=== PATIENT | male | born 1975 | race Hispanic/Latino ===

== ENCOUNTER 2019-10-23 02:00 | Emergency (ER) | payer OTHER ==
[~2019-10-23] VITALS: Ht 170.2 cm; Wt 97.5 kg
[2019-10-23 02:03] VITALS: BP 156/62
[2019-10-23] MEDS ORDERED: WATER ONE ×2 (02:03→02:42)
[2019-10-23] MEDS ORDERED: ANCEF 1 GM in NS 100ML 100 ML IV STA (02:11)
[2019-10-23] MEDS ORDERED: MORPHINE SULFATE IV STA (02:11)
--- NOTE | 2019-10-23 02:11 | NUR ---
CALL FOR XRAY CALL MADE FOR XRAY NEEDED TO [facility]
[2019-10-23 02:14] VITALS: BP_SYST 156
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
[2019-10-23] MEDS ORDERED: ANCEF ONE (02:17)
[2019-10-23] MEDS ORDERED: MORPHINE SULFATE ONE (02:17)
[2019-10-23] MEDS ORDERED: ADACEL VIAL IM ONE ×2 (02:18→02:30)
[2019-10-23] MEDS ORDERED: NS 100ML 100 ML IV ONE (02:18)
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
[2019-10-23 02:36] VITALS: BP 146/88
--- NOTE | 2019-10-23 02:49 | NUR ---
TRANSFER PT ACCEPTED TO [facility] ER-ER BY DR. NUNO AT THIS TIME WITH TANESHA BONDS. PT TO GO POV TO [facility].
[2019-10-23 03:06] VITALS: BP 146/83
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
== END 2019-10-23 03:28 | disposition short-term general hospital (02) ==
LOC: ER 02:00
DX: S61.432A Puncture wound without foreign body of left hand, initial encounter (principal); E11.9 Type 2 diabetes mellitus without complications; W34.00XA Accidental discharge from unspecified firearms or gun, initial encounter; Y93.89 Activity, other specified; Y92.89 Other specified places as the place of occurrence of the external cause; Y99.8 Other external cause status
CPT/HCPCS: 73130; 90471; 90715; 96365; 96375; 99285; J0690 ×2; J2270; J7050 ×2; 99284

== ENCOUNTER 2020-03-11 02:21 | Emergency (ER) | payer OTHER ==
[~2020-03-11] VITALS: Ht 167.6 cm; Wt 95.3 kg
[2020-03-11 02:38] VITALS: BP 161/92
[2020-03-11 03:26] VITALS: BP 147/89
--- NOTE | 2020-03-11 03:28 | ER.PDOC ---
General Chief Complaint: Sore Throat Stated Complaint: COUGH,SORE THROAT,CONGESTION Time seen by MD: 03:25 Source: patient Exam Limitations: no limitations History of Present Illness Initial Comments Cough, congestion and sore throat for 2 days. No fever or chills. Timing/Duration: gradual Severity: mild Associated Symptoms: runny nose, sore throat, cough Allergies: Coded Allergies: No Known Allergies (Unverified , 06/09/18) Constitutional: no symptoms reported EENTM: see HPI Respiratory: see HPI Cardiovascular: no symptoms reported Gastrointestinal: no symptoms reported Genitourinary: no symptoms reported All Other Systems: Reviewed and Negative Past Medical History Medical History: diabetes Surgical History: no surgical history Social History Alcohol Use: none Drug Use: none Physical Exam General Appearance: alert, no distress Eye: eyes nml inspection Nose: nose nml Throat: pharynx nml, airway nml Neck: nml inspection, supple Respiratory: no resp.distress, breath sounds nml Abdomen: non-tender, no organomegaly CVS: reg rate & rhythm, heart sounds nml Skin: color nml, no rash, warm/dry Extremities: non-tender, nml ROM, no pedal edema NEURO/PSYCH: oriented x 3, CN's nml as tested, motor nml, sensation nml, mood/affect nml Results/Orders Results/Orders Orders - GABI NAYLOR MD Influenza A&B (03/11/20 02:38) Strep Screen (03/11/20 02:38) Vital Signs Date Time Temp Pulse Resp B/P (MAP) Pulse Ox O2 Delivery O2 Flow Rate FiO2 03/11/20 02:38 98.1 95 16 03/11/20 02:38 98.1 95 16 161/92 (115) 100 Room Air 03/11/20 02:38 98.1 95 16 100 Laboratory Tests Test 03/11/20 02:40 Influenza Type A Antigen NEGATIVE (NEG) Influenza B Immunofluorescence NEGATIVE (NEG) Group A Streptococcus Screen NEGATIVE (NEGATIVE) ER DEPART Departure Time of Disposition: 03:26 Disposition: 01 HOME, SELF-CARE Impression: Primary Impression: Viral respiratory illness Condition: Stable Referrals: JOHANA HEREDIA MD (PCP) PRIMARY CARE PROVIDER Additional Instructions: Mucinex DM OTC as directed Chloraseptic spray OTC as needed for throat pain F/U with your PCP in 1 week Return to ED if worsening symptoms or concerns Duration or Time Spent with Pa: 10 min GABI NAYLOR MD Mar 11, 2020 03:28
== END 2020-03-11 03:30 | disposition home or self-care (01) ==
LOC: ER 02:21
DX: B34.9 Viral infection, unspecified (principal); E11.9 Type 2 diabetes mellitus without complications
CPT/HCPCS: 87070; 87804; 87880; 99283